=== PATIENT | female | born 1975 | race Caucasian/White ===

== ENCOUNTER → 2017-07-05 12:39 | Outpatient (CLI) | payer MEDICAID | END | disposition home or self-care (01) | LOC: D.MRI 12:39 | DX: S83.231A Complex tear of medial meniscus, current injury, right knee, initial encounter (principal) ==

== ENCOUNTER 2020-12-18 10:29 | Emergency (ER) | payer BC ==
[~2020-12-18] VITALS: Ht 167.6 cm; Wt 106.8 kg
[2020-12-18 10:38] VITALS: BP 125/82; Ht 167.6 cm; Wt 106.8 kg
[2020-12-18] MEDS ORDERED: INDERAL LA120 MG PO (10:41)
[2020-12-18] MEDS ORDERED: SOMA350 MG PO (10:42)
[2020-12-18] MEDS ORDERED: CYMBALTA60 MG PO (10:42)
[2020-12-18] MEDS ORDERED: OMEPRAZOLE40 MG PO (10:43)
[2020-12-18] MEDS ORDERED: CARAFATE1 G PO (10:43)
== END 2020-12-18 12:32 | disposition home or self-care (01) ==
LOC: D.ER 10:29
DX: S09.90XA Unspecified injury of head, initial encounter (principal); S30.0XXA Contusion of lower back and pelvis, initial encounter; S80.12XA Contusion of left lower leg, initial encounter; S93.601A Unspecified sprain of right foot, initial encounter; S43.401A Unspecified sprain of right shoulder joint, initial encounter; W10.9XXA Fall (on) (from) unspecified stairs and steps, initial encounter; Y93.9 Activity, unspecified; Y92.9 Unspecified place or not applicable